=== PATIENT | male | born 1955 | race Caucasian/White ===

== ENCOUNTER 2017-02-18 17:13 | Inpatient (IN) | END 2017-02-22 23:15 | disposition home health service (06) | DRG 581 | DX: L03.011 Cellulitis of right finger (principal) ==

== ENCOUNTER → 2017-02-25 | Outpatient (CLI) | payer BC ==
[~2017-02-25] MED LIST: MUPI22OI2 TOP; VICES PO; Vancomycin Iv Per Pharmacy IV
--- NOTE | 2017-02-25 17:37 | RADRPT ---
PROCEDURE: US Lower extremity venous, bilateral CLINICAL INDICATION: PAIN AND SWELLING TECHNIQUE: Multiple sonographic images of the bilateral lower extremity deep venous system was ob tained utilizing grayscale, color-flow, compressive sonography and doppler imaging with augmentation . The images were reviewed on a PACS workstation. COMPARISON: None. FINDINGS: There is normal compressibility and flow within the bilateral common femoral, superficial femoral , posterior tibial, peroneal and popliteal veins. RPTAT: AA IMPRESSION: No sonographic evidence for deep venous thrombosis in bilateral lower extremities. Physician Dante Date Time Electronically viewed and signed by Physician Dante on 02/25/2017 17:37 RA/
== END | disposition home or self-care (01) ==
LOC: VAS 16:29
PROVIDERS: ATTEND Internal Medicine
DX: M79.662 Pain in left lower leg (principal); M79.661 Pain in right lower leg; R22.43 Localized swelling, mass and lump, lower limb, bilateral
CPT/HCPCS: 93970